=== PATIENT | male | born 1980 | race Caucasian/White ===

== ENCOUNTER 2017-05-22 08:27 | Emergency (ER) | payer MEDICAID, OTHER ==
[~2017-05-22] VITALS: Ht 185.4 cm; Wt 77.3 kg
[~2017-05-22 08:27] MED LIST: ALBU17AE16 IH
[2017-05-22 09:04] VITALS: BP 139/82
[2017-05-22] MEDS ORDERED: IBUPROFEN 600 MG TABLET PO ONE (09:15)
== END 2017-05-22 09:27 | disposition home or self-care (01) ==
LOC: EMS 08:28
DX: K02.9 Dental caries, unspecified (principal); J45.909 Unspecified asthma, uncomplicated; Z79.899 Other long term (current) drug therapy; Z71.6 Tobacco abuse counseling; F17.210 Nicotine dependence, cigarettes, uncomplicated
CPT/HCPCS: 99283; 99406

== ENCOUNTER 2017-05-31 18:56 | Emergency (ER) | payer MEDICAID ==
[~2017-05-31] VITALS: Ht 185.4 cm; Wt 77.3 kg
[2017-05-31 18:58] VITALS: BP 143/79
[2017-05-31] MEDS ORDERED: IPRATROPIUM BROMIDE 0.5 MG/2.5 ML NEB SOLUTION NEB PRN (19:15)
[2017-05-31] MEDS ORDERED: ALBUTEROL SULFATE 2.5 MG/0.5 ML NEB SOLUTION NEB PRN (19:15)
[2017-05-31] MEDS ORDERED: MethylPREDNISolone SOD SUCC 125 MG/2 ML VIAL IVP ONE (19:45)
[2017-05-31] MEDS ORDERED: IPRATROPIUM BROMIDE 0.5 MG/2.5 ML NEB SOLUTION NEB ONE (19:45)
[2017-05-31] MEDS ORDERED: ALBUTEROL SULFATE 5 MG/ML 20 ML NEB SOLN [BULK] NEB ONE (19:46)
[2017-05-31 19:48] LABS: BASOPHILS % (AUTO) 1.1 % (0.0-2.0); EOSINOPHILS % (AUTO) 8.1 % (1.0-6.0); HEMATOCRIT 45.9 % (41-53); LYMPHOCYTES # (AUTO) 2.6 K/uL (1.0-4.8); LYMPHOCYTES % (AUTO) 28.9 % (22.0-44.0); MEAN CORPUSCULAR HGB CONC 34.8 G/dL (31.0-37.0); MEAN CORPUSCULAR VOLUME 95 fL (80-100); MONOCYTES # (AUTO) 0.6 K/uL (0.1-1.0); MONOCYTES % (AUTO) 7.2 % (2.0-9.0); NEUTROPHILS # (AUTO) 4.9 K/uL (1.8-7.7); NEUTROPHILS % (AUTO) 54.7 % (40.0-70.0); PLATELET COUNT (AUTO) 310 K/uL (150-450); RED BLOOD CELL COUNT(AUTO) 4.85 MIL/uL (4.50-5.90); RED CELL DISTRIBUTION WIDTH 13.3 % (11.5-14.5)
[2017-05-31 20:10] LABS: B-TYPE NATRIURETIC PEPTIDE 7 pg/mL (0-100)
[2017-05-31 20:30] LABS: ANION GAP 9 mmol/L (8-16); CALCIUM, TOTAL 9.1 mg/dL (8.8-10.5); CARBON DIOXIDE 30 mmol/L (22-29); CHLORIDE 105 mmol/L (98-107); CREATININE 1.15 mg/dL (0.60-1.30); GLOMERULAR FILTR. RATE CALC > 60 mL/min (>60); GLUCOSE,RANDOM 93 mg/dL (70-110); POTASSIUM 3.9 mmol/L (3.5-5.1); SODIUM SERUM 144 mmol/L (136-145); UREA NITROGEN, BLOOD 17 mg/dL (7-18)
[2017-05-31 20:34] LABS: ALANINE AMINOTRANSFERASE 19 U/L (12-78); ALBUMIN 3.8 g/dL (3.4-5.0); ALKALINE PHOSPHATASE 84 U/L (46-116); ASPARTATE AMINOTRANSFERASE 18 U/L (15-37); BILIRUBIN,TOTAL 0.3 mg/dL (0.1-1.0); TOTAL PROTEIN, SERUM 7.3 g/dL (6.4-8.2)
== END 2017-05-31 21:20 | disposition home or self-care (01) ==
LOC: EMS 18:57
DX: J45.901 Unspecified asthma with (acute) exacerbation (principal); F17.210 Nicotine dependence, cigarettes, uncomplicated
CPT/HCPCS: 36415; 71045; 80053; 83880; 84484; 85025; 93005; 94644; 96374; 99285; J2930; J7611

== ENCOUNTER → 2017-06-27 | Outpatient (CLI) | payer OTHER | END | disposition home or self-care (01) | LOC: EMPHLTH 14:09 | PROVIDERS: ATTEND Internal Medicine | DX: Z02.1 Encounter for pre-employment examination (principal) | CPT/HCPCS: 86706; 86735; 86762; 86765; 86787 ==

== ENCOUNTER 2017-07-06 20:06 | Emergency (ER) | payer MEDICAID ==
[~2017-07-06] VITALS: Ht 182.9 cm; Wt 106.8 kg
[2017-07-06] MEDS ORDERED: ALBUTEROL SULFATE 2.5 MG/0.5 ML NEB SOLUTION NEB ONE (20:15)
[2017-07-06] MEDS ORDERED: 0.9% SODIUM CHLORIDE 5 ML NEB SOLUTION NEB ONE ×2 (20:34→21:21)
[2017-07-06] MEDS ORDERED: LEVALBUTEROL HCL 1.25 MG/0.5 ML NEB SOLUTION NEB ONE (21:10)
[2017-07-06] MEDS ORDERED: IPRATROPIUM BROMIDE 0.5 MG/2.5 ML NEB SOLUTION NEB ONE (21:15)
[2017-07-06] MEDS ORDERED: MethylPREDNISolone SOD SUCC 125 MG/2 ML VIAL IVP ONE (21:15)
[2017-07-06 22:17] VITALS: BP 129/83
[2017-07-06] MEDS ORDERED: ALBUTEROL SULFATE HFA 90 MCG/PUFF 8 GM INHALER IH ONE (22:30)
== END 2017-07-06 22:42 | disposition home or self-care (01) ==
LOC: EMS 20:07
DX: J45.909 Unspecified asthma, uncomplicated (principal); F17.210 Nicotine dependence, cigarettes, uncomplicated
CPT/HCPCS: 71045; 94644; 96374; 99285; J2930; J7613; Z7610; 94640; J3535

== ENCOUNTER 2017-09-08 19:39 | Emergency (ER) | payer MEDICAID ==
[~2017-09-08] VITALS: Ht 182.9 cm; Wt 90.9 kg
[2017-09-08] MEDS ORDERED: 0.9% SODIUM CHLORIDE 5 ML NEB SOLUTION NEB ONE (19:56)
[2017-09-08] MEDS ORDERED: IPRATROPIUM BROMIDE 0.5 MG/2.5 ML NEB SOLUTION NEB ONE (20:00)
[2017-09-08] MEDS ORDERED: ALBUTEROL SULFATE 5 MG/ML 20 ML NEB SOLN [BULK] NEB ONE (20:00)
[2017-09-08] MEDS ORDERED: MAGNESIUM SULFATE 4 GM/WATER 100 ML IV ONE (20:15)
[2017-09-08] MEDS ORDERED: MethylPREDNISolone SOD SUCC 125 MG/2 ML VIAL IVP ONE (20:15)
[2017-09-08] MEDS ORDERED: KETOROLAC TROMETHAMINE 30 MG/ML VIAL IVP ONE (20:30)
[2017-09-08] MEDS ORDERED: HYDROCODONE/ACETAMINOPHEN 5-325 MG TABLET PO ONE (21:45)
[2017-09-08 22:24] VITALS: BP 129/80
== END 2017-09-08 22:28 | disposition home or self-care (01) ==
LOC: EMS 19:40
DX: J45.909 Unspecified asthma, uncomplicated (principal); F17.210 Nicotine dependence, cigarettes, uncomplicated
CPT/HCPCS: 71045; 94644; 96365; 96366; 96375; 99285; J1885; J2930; J3475; J7611

== ENCOUNTER 2017-11-15 12:15 | Emergency (ER) | payer MEDICAID ==
[~2017-11-15] VITALS: Ht 185.4 cm; Wt 82.3 kg
[2017-11-15 12:40] VITALS: BP 142/76
[2017-11-15] MEDS ORDERED: IBUPROFEN 800 MG TABLET PO ONE (12:45)
== END 2017-11-15 13:32 | disposition home or self-care (01) ==
LOC: EMS 12:16
DX: K08.89 Other specified disorders of teeth and supporting structures (principal); J45.909 Unspecified asthma, uncomplicated; F17.210 Nicotine dependence, cigarettes, uncomplicated
CPT/HCPCS: 99283

== ENCOUNTER 2018-01-18 18:49 | Emergency (ER) | payer MEDICAID ==
[~2018-01-18] VITALS: Ht 185.4 cm; Wt 81.8 kg
[2018-01-18] MEDS ORDERED: BACITRACIN 0.9 GM PACKET OINTMENT TP ONE (19:30)
[2018-01-18] MEDS ORDERED: POVIDONE-IODINE 10% 15 ML SOLUTION UD TP ONE (19:30)
[2018-01-18] MEDS ORDERED: LIDOCAINE 1% 10 ML VIAL INJ ONE (19:30)
[2018-01-18] MEDS ORDERED: IBUPROFEN 800 MG TABLET PO ONE (19:30)
[2018-01-18] MEDS ORDERED: PERTUSS(ACELL),DIPH,TET VAC/PF 0.5 ML VIAL IM ONE (19:30)
[2018-01-18 20:37] VITALS: BP 125/80
== END 2018-01-18 20:36 | disposition home or self-care (01) ==
LOC: EMS 18:51
DX: S61.011A Laceration without foreign body of right thumb without damage to nail, initial encounter (principal); J45.909 Unspecified asthma, uncomplicated; F17.210 Nicotine dependence, cigarettes, uncomplicated; Z79.899 Other long term (current) drug therapy; W45.8XXA Other foreign body or object entering through skin, initial encounter; Y93.89 Activity, other specified; Y92.098 Other place in other non-institutional residence as the place of occurrence of the external cause; Y99.8 Other external cause status
CPT/HCPCS: 12001; 90471; 90715; 99283; J3490

== ENCOUNTER 2018-06-08 10:33 | Emergency (ER) | payer MEDICAID ==
[~2018-06-08] VITALS: Ht 185.4 cm; Wt 86.4 kg
[2018-06-08] MEDS ORDERED: IPRATROPIUM BROMIDE 0.5 MG/2.5 ML NEB SOLUTION NEB ONE (11:15)
[2018-06-08] MEDS ORDERED: PredniSONE 20 MG TABLET PO ONE (11:15)
[2018-06-08] MEDS ORDERED: ALBUTEROL SULFATE 2.5 MG/0.5 ML NEB SOLUTION NEB ONE (11:15)
[2018-06-08 12:45] VITALS: BP 132/80
[2018-06-08] MEDS ORDERED: ACETAMINOPHEN 325 MG TABLET PO ONE (12:45)
[2018-06-08] MEDS ORDERED: ALBUTEROL SULFATE HFA 90 MCG/PUFF 8 GM INHALER IH ONE (12:45)
== END 2018-06-08 13:15 | disposition home or self-care (01) ==
LOC: EMS 10:34
DX: J45.909 Unspecified asthma, uncomplicated (principal); F17.210 Nicotine dependence, cigarettes, uncomplicated; Z76.0 Encounter for issue of repeat prescription
CPT/HCPCS: 94640; 99284; J7512; J3535

== ENCOUNTER 2018-07-21 13:44 | Emergency (ER) | payer MEDICAID ==
[~2018-07-21] VITALS: Ht 185.4 cm; Wt 89.5 kg
[2018-07-21] MEDS ORDERED: IPRATROPIUM BROMIDE 0.5 MG/2.5 ML NEB SOLUTION NEB ONE (14:15)
[2018-07-21] MEDS ORDERED: ALBUTEROL SULFATE 2.5 MG/0.5 ML NEB SOLUTION NEB ONE (14:15)
[2018-07-21] MEDS ORDERED: PredniSONE 20 MG TABLET PO ONE (15:15)
[2018-07-21 16:13] VITALS: BP 131/71
== END 2018-07-21 16:32 | disposition home or self-care (01) ==
LOC: EMS 13:46
DX: J45.901 Unspecified asthma with (acute) exacerbation (principal); L30.9 Dermatitis, unspecified; I10 Essential (primary) hypertension; F17.210 Nicotine dependence, cigarettes, uncomplicated; Z79.899 Other long term (current) drug therapy
CPT/HCPCS: 94640; 99283; 99406; J7512

== ENCOUNTER 2018-11-09 07:10 | Emergency (ER) | payer MEDICAID ==
[~2018-11-09] VITALS: Ht 185.4 cm; Wt 86.4 kg
[2018-11-09] MEDS: SODIUM CHLORIDE 0.9% 1,000 ML IV ONE (08:04)
[2018-11-09] MEDS: MethylPREDNISolone SOD SUCC 125 MG/2 ML VIAL IVP ONE (08:04)
[2018-11-09 08:15] LABS: BASOPHILS % (AUTO) 0.4 % (0.0-2.0); EOSINOPHILS % (AUTO) 2.5 % (1.0-6.0); HEMATOCRIT 45.6 % (41-53); HEMOGLOBIN 15.4 g/dL (13.5-17.5); LYMPHOCYTES # (AUTO) 0.7 K/uL (1.0-4.8); LYMPHOCYTES % (AUTO) 8.5 % (22.0-44.0); MEAN CORPUSCULAR HEMOGLOBIN 32.5 pg (26.0-34.0); MEAN CORPUSCULAR HGB CONC 33.8 G/dL (31.0-37.0); MEAN CORPUSCULAR VOLUME 96 fL (80-100); MONOCYTES # (AUTO) 0.8 K/uL (0.1-1.0); MONOCYTES % (AUTO) 9.3 % (2.0-9.0); NEUTROPHILS # (AUTO) 6.9 K/uL (1.8-7.7); NEUTROPHILS % (AUTO) 79.3 % (40.0-70.0); PLATELET COUNT (AUTO) 261 K/uL (150-450); RED BLOOD CELL COUNT(AUTO) 4.74 MIL/uL (4.50-5.90); RED CELL DISTRIBUTION WIDTH 12.9 % (11.5-14.5)
[2018-11-09] MEDS: IPRATROPIUM BROMIDE 0.5 MG/2.5 ML NEB SOLUTION NEB ONE ×2 (08:18→11:49)
[2018-11-09] MEDS: ALBUTEROL SULFATE 2.5 MG/0.5 ML NEB SOLUTION NEB ONE (08:18)
[2018-11-09 08:22] LABS: ANION GAP 12 mmol/L (8-16); CALCIUM, TOTAL 8.8 mg/dL (8.8-10.5); CARBON DIOXIDE 24 mmol/L (22-29); CHLORIDE 104 mmol/L (98-107); GLOMERULAR FILTR. RATE CALC > 60 mL/min (>60); GLUCOSE,RANDOM 134 mg/dL (70-110); POTASSIUM 3.2 mmol/L (3.5-5.1); SODIUM SERUM 140 mmol/L (136-145); UREA NITROGEN, BLOOD 19 mg/dL (7-18)
[2018-11-09] MEDS ORDERED: 0.9% SODIUM CHLORIDE 5 ML NEB SOLUTION NEB ONE (08:24)
[2018-11-09 08:27] LABS: ALANINE AMINOTRANSFERASE 28 U/L (12-78); ALBUMIN 3.6 g/dL (3.4-5.0); ALKALINE PHOSPHATASE 85 U/L (46-116); ASPARTATE AMINOTRANSFERASE 21 U/L (15-37); BILIRUBIN,TOTAL 0.6 mg/dL (0.1-1.0); LIPASE 95 U/L (73-393)
[2018-11-09] MEDS: DICYCLOMINE HCL 20 MG TABLET PO ONE (08:47)
[2018-11-09] MEDS: ALBUTEROL SULFATE 5 MG/ML 20 ML NEB SOLN [BULK] NEB ONE (11:49)
[2018-11-09] MEDS: IBUPROFEN 800 MG TABLET PO ONE (13:04)
[2018-11-09 13:08] VITALS: BP 143/83
== END 2018-11-09 13:31 | disposition home or self-care (01) ==
LOC: EMS 07:15
DX: J45.901 Unspecified asthma with (acute) exacerbation (principal); J06.9 Acute upper respiratory infection, unspecified; R10.9 Unspecified abdominal pain; R11.2 Nausea with vomiting, unspecified; F17.210 Nicotine dependence, cigarettes, uncomplicated
CPT/HCPCS: 36415; 71045; 80053; 83690; 85025; 94644; 94645; 96374; 99285; 99406; J2930; J7030

== ENCOUNTER 2019-02-26 07:11 | Emergency (ER) | payer MEDICAID ==
[~2019-02-26] VITALS: Ht 185.4 cm; Wt 87.3 kg
[2019-02-26] MEDS ORDERED: AUD NEB (07:19)
[2019-02-26] MEDS ORDERED: BECL10.6 IH (07:19)
[2019-02-26] MEDS ORDERED: CYCLOBENZAPRINE HCL 10 MG TABLET PO ONE (07:45)
[2019-02-26] MEDS ORDERED: IBUPROFEN 600 MG TABLET PO ONE (07:45)
[2019-02-26 07:57] LABS: BASOPHILS % (AUTO) 0.4 % (0.0-2.0); EOSINOPHILS % (AUTO) 0.7 % (1.0-6.0); HEMATOCRIT 47.5 % (41-53); HEMOGLOBIN 16.5 g/dL (13.5-17.5); LYMPHOCYTES # (AUTO) 0.6 K/uL (1.0-4.8); MEAN CORPUSCULAR HGB CONC 34.7 G/dL (31.0-37.0); MEAN CORPUSCULAR VOLUME 95 fL (80-100); MONOCYTES # (AUTO) 0.3 K/uL (0.1-1.0); MONOCYTES % (AUTO) 4.4 % (2.0-9.0); NEUTROPHILS # (AUTO) 6.7 K/uL (1.8-7.7); PLATELET COUNT (AUTO) 320 K/uL (150-450); RED BLOOD CELL COUNT(AUTO) 4.99 MIL/uL (4.50-5.90); RED CELL DISTRIBUTION WIDTH 12.4 % (11.5-14.5)
[2019-02-26 08:05] LABS: ANION GAP 11 mmol/L (8-16); CALCIUM, TOTAL 8.8 mg/dL (8.8-10.5); CARBON DIOXIDE 24 mmol/L (22-29); CHLORIDE 104 mmol/L (98-107); CREATININE 1.12 mg/dL (0.60-1.30); GLOMERULAR FILTR. RATE CALC > 60 mL/min (>60); GLUCOSE,RANDOM 157 mg/dL (70-110); SODIUM SERUM 139 mmol/L (136-145); UREA NITROGEN, BLOOD 17 mg/dL (7-18)
[2019-02-26 08:08] LABS: NEUTROPHILS % (AUTO) 86.5 % (40.0-70.0)
[2019-02-26 08:45] VITALS: BP 138/87
== END 2019-02-26 08:55 | disposition home or self-care (01) ==
LOC: EMS 07:14
DX: R07.89 Other chest pain (principal); M54.5 Low back pain; J45.909 Unspecified asthma, uncomplicated; F17.210 Nicotine dependence, cigarettes, uncomplicated; Z98.890 Other specified postprocedural states
CPT/HCPCS: 93005

== ENCOUNTER 2019-05-13 06:22 | Emergency (ER) | payer MEDICAID ==
[~2019-05-13] VITALS: Ht 185.4 cm; Wt 100.0 kg
[~2019-05-13 06:22] MED LIST changes: +AUD NEB; +BECL10.6 IH
[2019-05-13] MEDS ORDERED: KETOROLAC TROMETHAMINE 30 MG/ML VIAL IM ONE (08:00)
[2019-05-13] MEDS ORDERED: PENICILLIN V POTASSIUM 500 MG TABLET PO ONE (08:00)
[2019-05-13 08:20] VITALS: BP 133/81
== END 2019-05-13 08:40 | disposition home or self-care (01) ==
LOC: EMS 06:22
DX: K08.89 Other specified disorders of teeth and supporting structures (principal); J45.909 Unspecified asthma, uncomplicated; F17.210 Nicotine dependence, cigarettes, uncomplicated; Z79.899 Other long term (current) drug therapy; Z98.890 Other specified postprocedural states
CPT/HCPCS: 96372; 99283; 99406; J1885

== ENCOUNTER 2020-03-03 11:43 | Emergency (ER) | payer MEDICAID ==
[~2020-03-03] VITALS: Ht 185.4 cm; Wt 95.5 kg
[2020-03-03] MEDS ORDERED: IPRATROPIUM BROMIDE 0.5 MG/2.5 ML NEB SOLUTION NEB ONE ×2 (12:00→13:00)
[2020-03-03] MEDS ORDERED: KETOROLAC TROMETHAMINE 30 MG/ML VIAL IVP ONE (12:00)
[2020-03-03] MEDS ORDERED: MethylPREDNISolone SOD SUCC 125 MG/2 ML VIAL IVP ONE (12:00)
[2020-03-03] MEDS ORDERED: ALBUTEROL SULFATE 2.5 MG/0.5 ML NEB SOLUTION NEB ONE ×4 (12:00→13:00)
[2020-03-03 12:28] LABS: BASOPHILS % (AUTO) 0.8 % (0.0-2.0); HEMATOCRIT 45.3 % (41-53); HEMOGLOBIN 15.8 g/dL (13.5-17.5); LYMPHOCYTES # (AUTO) 1.4 K/uL (1.0-4.8); MEAN CORPUSCULAR HGB CONC 34.8 G/dL (31.0-37.0); MEAN CORPUSCULAR VOLUME 95 fL (80-100); MONOCYTES # (AUTO) 0.5 K/uL (0.1-1.0); MONOCYTES % (AUTO) 7.2 % (2.0-9.0); NEUTROPHILS # (AUTO) 4.8 K/uL (1.8-7.7); PLATELET COUNT (AUTO) 279 K/uL (150-450); RED BLOOD CELL COUNT(AUTO) 4.77 MIL/uL (4.50-5.90); RED CELL DISTRIBUTION WIDTH 12.9 % (11.5-14.5)
[2020-03-03] MEDS ORDERED: ALBU8HFA IH (12:28)
[2020-03-03] MEDS ORDERED: SODIUM CHLORIDE 0.9% 1,000 ML IV ONE (12:30)
[2020-03-03 12:41] LABS: COVID AG,FIA SOURCE NASOPHARYNGEAL
[2020-03-03 12:41] LABS: ANION GAP 8 mmol/L (8-16); CALCIUM, TOTAL 9.4 mg/dL (8.8-10.5); CARBON DIOXIDE 26 mmol/L (22-29); CHLORIDE 102 mmol/L (98-107); CREATININE 0.87 mg/dL (0.60-1.30); GLOMERULAR FILTR. RATE CALC > 60 mL/min (>60); GLUCOSE,RANDOM 103 mg/dL (70-110); POTASSIUM 3.9 mmol/L (3.5-5.1); SODIUM SERUM 136 mmol/L (136-145); UREA NITROGEN, BLOOD 14 mg/dL (7-18)
[2020-03-03 13:01] LABS: ALANINE AMINOTRANSFERASE 31 U/L (12-78); ALBUMIN 3.8 g/dL (3.4-5.0); ALKALINE PHOSPHATASE 80 U/L (46-116); ASPARTATE AMINOTRANSFERASE 21 U/L (15-37); BILIRUBIN,TOTAL 0.6 mg/dL (0.1-1.0); CREATINE KINASE, TOTAL ONLY 181 U/L (39-308); TOTAL PROTEIN, SERUM 7.9 g/dL (6.4-8.2)
[2020-03-03 13:02] LABS: B-TYPE NATRIURETIC PEPTIDE 8 pg/mL (0-100)
[2020-03-03 13:46] LABS: INFLUENZA TYPE A NEGATIVE FOR TYPE A (NEGATIVE); INFLUENZA TYPE B NEGATIVE FOR TYPE B (NEGATIVE)
[2020-03-03] MEDS ORDERED: ALBUTEROL SULFATE HFA 90 MCG/PUFF 8 GM INHALER IH ONE (15:45)
[2020-03-03 16:27] VITALS: BP 130/84
== END 2020-03-03 16:29 | disposition home or self-care (01) ==
LOC: EMS 11:43
DX: J45.909 Unspecified asthma, uncomplicated (principal); F17.210 Nicotine dependence, cigarettes, uncomplicated; Z20.828 Contact with and (suspected) exposure to other viral communicable diseases
CPT/HCPCS: 36415; 71045; 80053; 82550; 83880; 84484; 85025; 87426; 87804; 93005; 94640; 96361; 96374; 96375; 99285; J1885; J2930; J7030; U0003; J3535; J7613

== ENCOUNTER 2020-03-11 08:33 | Emergency (ER) | payer MEDICAID ==
[~2020-03-11] VITALS: Ht 185.4 cm; Wt 95.5 kg
[~2020-03-11 08:33] MED LIST changes: -ALBU17AE16 IH; +ALBU8HFA IH
[2020-03-11] MEDS ORDERED: KETOROLAC TROMETHAMINE 30 MG/ML VIAL IVP ONE (09:45)
[2020-03-11] MEDS ORDERED: METHOCARBAMOL 100 MG/ML 10 ML VIAL IVP ONE (09:45)
[2020-03-11 10:53] VITALS: BP 135/75
== END 2020-03-11 10:50 | disposition home or self-care (01) ==
LOC: EMS 08:35
DX: M54.5 Low back pain (principal); J45.909 Unspecified asthma, uncomplicated; F17.210 Nicotine dependence, cigarettes, uncomplicated; Z91.011 Allergy to milk products
CPT/HCPCS: 96374; 96375; 99284; J1885; J2800

== ENCOUNTER 2020-06-07 07:22 | Emergency (ER) | payer MEDICAID ==
[~2020-06-07] VITALS: Ht 182.9 cm; Wt 95.5 kg
[~2020-06-07 07:22] MED LIST changes: -AUD NEB
[2020-06-07] MEDS ORDERED: KETOROLAC TROMETHAMINE 30 MG/ML VIAL IVP ONE (08:00)
[2020-06-07] MEDS ORDERED: MORPHINE SULFATE 4 MG/ML SYRINGE IVP ONE (08:00)
[2020-06-07 11:18] VITALS: BP 139/94
== END 2020-06-07 11:20 | disposition home or self-care (01) ==
LOC: EMS 07:22
DX: S13.4XXA Sprain of ligaments of cervical spine, initial encounter (principal); J45.909 Unspecified asthma, uncomplicated; F17.210 Nicotine dependence, cigarettes, uncomplicated; Z91.011 Allergy to milk products; X58.XXXA Exposure to other specified factors, initial encounter; Y93.89 Activity, other specified; Y92.89 Other specified places as the place of occurrence of the external cause; Y99.8 Other external cause status
CPT/HCPCS: 72141; 96374; 96375; 99285; J1885; J2270

== ENCOUNTER 2020-09-28 14:15 | Emergency (ER) | payer MEDICAID ==
[~2020-09-28] VITALS: Ht 185.4 cm; Wt 95.5 kg
[2020-09-28] MEDS ORDERED: MethylPREDNISolone SOD SUCC 125 MG/2 ML VIAL IVP ONE (15:15)
[2020-09-28] MEDS ORDERED: KETOROLAC TROMETHAMINE 30 MG/ML VIAL IVP ONE (15:15)
[2020-09-28] MEDS ORDERED: ALBUTEROL SULFATE 5 MG/ML 20 ML NEB SOLN [BULK] NEB ONE (15:15)
[2020-09-28 16:21] LABS: COVID AG,FIA SOURCE NASAL SWAB
[2020-09-28] MEDS ORDERED: MORPHINE SULFATE 2 MG/ML SYRINGE IVP ONE (17:15)
[2020-09-28 17:17] LABS: BASOPHILS % (AUTO) 0.2 % (0.0-2.0); EOSINOPHILS % (AUTO) 2.2 % (1.0-6.0); HEMATOCRIT 43.8 % (41-53); HEMOGLOBIN 14.9 g/dL (13.5-17.5); LYMPHOCYTES # (AUTO) 1.1 K/uL (1.0-4.8); LYMPHOCYTES % (AUTO) 10.5 % (22.0-44.0); MEAN CORPUSCULAR HEMOGLOBIN 32.4 pg (26.0-34.0); MEAN CORPUSCULAR HGB CONC 34.1 G/dL (31.0-37.0); MEAN CORPUSCULAR VOLUME 95 fL (80-100); MONOCYTES # (AUTO) 0.4 K/uL (0.1-1.0); MONOCYTES % (AUTO) 4.2 % (2.0-9.0); NEUTROPHILS # (AUTO) 8.6 K/uL (1.8-7.7); NEUTROPHILS % (AUTO) 82.9 % (40.0-70.0); PLATELET COUNT (AUTO) 328 K/uL (150-450); RED BLOOD CELL COUNT(AUTO) 4.61 MIL/uL (4.50-5.90); RED CELL DISTRIBUTION WIDTH 12.9 % (11.5-14.5)
[2020-09-28 17:29] LABS: ANION GAP 9 mmol/L (8-16); CALCIUM, TOTAL 8.7 mg/dL (8.8-10.5); CARBON DIOXIDE 26 mmol/L (22-29); CHLORIDE 103 mmol/L (98-107); CREATININE 1.02 mg/dL (0.60-1.30); GLOMERULAR FILTR. RATE CALC > 60 mL/min (>60); GLUCOSE,RANDOM 110 mg/dL (70-110); POTASSIUM 3.9 mmol/L (3.5-5.1); SODIUM SERUM 138 mmol/L (136-145); UREA NITROGEN, BLOOD 18 mg/dL (7-18)
[2020-09-28 17:35] LABS: ALANINE AMINOTRANSFERASE 26 U/L (12-78); ALBUMIN 4.1 g/dL (3.4-5.0); ALKALINE PHOSPHATASE 80 U/L (46-116); ASPARTATE AMINOTRANSFERASE 19 U/L (15-37); BILIRUBIN,TOTAL 0.3 mg/dL (0.1-1.0); TOTAL PROTEIN, SERUM 7.4 g/dL (6.4-8.2)
[2020-09-28 17:41] LABS: B-TYPE NATRIURETIC PEPTIDE < 5 pg/mL (0-100)
[2020-09-28 18:11] VITALS: BP 126/82
[2020-09-28] MEDS ORDERED: ALBUTEROL SULFATE HFA 90 MCG/PUFF 8 GM INHALER IH ONE (18:15)
== END 2020-09-28 18:32 | disposition home or self-care (01) ==
LOC: EMS 14:18
DX: J45.909 Unspecified asthma, uncomplicated (principal); F17.210 Nicotine dependence, cigarettes, uncomplicated; Z20.822 Contact with and (suspected) exposure to COVID-19; Z91.011 Allergy to milk products
CPT/HCPCS: 36415; 71045; 80053; 83880; 84484; 85025; 87426; 93005; 94640; 96374; 96375; 99285; J1885; J2270; J2930; J7611

== ENCOUNTER 2020-12-08 08:56 | Emergency (ER) | payer MEDICAID ==
[~2020-12-08] VITALS: Ht 182.9 cm; Wt 100.0 kg
[2020-12-08] MEDS ORDERED: SODIUM CHLORIDE 0.9% 100 ML ONE (10:24)
[2020-12-08] MEDS ORDERED: IOHEXOL 350 MG/ML 75 ML VIAL ONE (10:24)
[2020-12-08] MEDS ORDERED: ACETAMINOPHEN 325 MG TABLET PO ONE (10:30)
[2020-12-08] MEDS ORDERED: KETOROLAC TROMETHAMINE 30 MG/ML VIAL IVP ONE (11:00)
[2020-12-08] MEDS ORDERED: MORPHINE SULFATE 4 MG/ML SYRINGE IVP ONE (11:45)
[2020-12-08 12:04] LABS: COVID AG,FIA SOURCE NASOPHARYNGEAL
[2020-12-08 12:11] LABS: BASOPHILS % (AUTO) 0.4 % (0.0-2.0); EOSINOPHILS % (AUTO) 0.1 % (1.0-6.0); HEMATOCRIT 44.1 % (41-53); HEMOGLOBIN 14.9 g/dL (13.5-17.5); LYMPHOCYTES # (AUTO) 0.5 K/uL (1.0-4.8); LYMPHOCYTES % (AUTO) 5.7 % (22.0-44.0); MEAN CORPUSCULAR HEMOGLOBIN 32.2 pg (26.0-34.0); MEAN CORPUSCULAR HGB CONC 33.7 G/dL (31.0-37.0); MEAN CORPUSCULAR VOLUME 95 fL (80-100); MONOCYTES # (AUTO) 0.2 K/uL (0.1-1.0); MONOCYTES % (AUTO) 1.8 % (2.0-9.0); NEUTROPHILS # (AUTO) 7.8 K/uL (1.8-7.7); PLATELET COUNT (AUTO) 285 K/uL (150-450); RED BLOOD CELL COUNT(AUTO) 4.62 MIL/uL (4.50-5.90)
[2020-12-08 12:22] LABS: ALANINE AMINOTRANSFERASE 28 U/L (12-78); ALBUMIN 3.7 g/dL (3.4-5.0); ALKALINE PHOSPHATASE 71 U/L (46-116); ANION GAP 6 mmol/L (8-16); ASPARTATE AMINOTRANSFERASE 21 U/L (15-37); BILIRUBIN,TOTAL 0.5 mg/dL (0.1-1.0); C-REACTIVE PROTEIN QUANT 0.51 mg/dL (0.00-0.30); CALCIUM, TOTAL 9.1 mg/dL (8.8-10.5); CARBON DIOXIDE 26 mmol/L (22-29); CHLORIDE 103 mmol/L (98-107); CREATININE 0.73 mg/dL (0.60-1.30); FERRITIN 163 ng/mL (26-388); GLOMERULAR FILTR. RATE CALC > 60 mL/min (>60); GLUCOSE,RANDOM 119 mg/dL (70-110); LACTATE DEHYDROGENASE 186 U/L (85-227); POTASSIUM 4.2 mmol/L (3.5-5.1); SODIUM SERUM 135 mmol/L (136-145); TOTAL PROTEIN, SERUM 7.7 g/dL (6.4-8.2); UREA NITROGEN, BLOOD 15 mg/dL (7-18)
[2020-12-08] MEDS ORDERED: ALBUTEROL SULFATE HFA 90 MCG/PUFF 8 GM INHALER IH ONE (12:45)
[2020-12-08 14:03] VITALS: BP 130/71
== END 2020-12-08 14:14 | disposition home or self-care (01) ==
LOC: EMS 09:01
DX: R06.02 Shortness of breath (principal); R07.9 Chest pain, unspecified; J45.909 Unspecified asthma, uncomplicated; Z79.899 Other long term (current) drug therapy; Z88.8 Allergy status to other drugs, medicaments and biological substances; Z20.822 Contact with and (suspected) exposure to COVID-19
CPT/HCPCS: 36415; 71045; 71275; 80053; 82728; 83615; 84145; 84484; 85025; 85379; 86140; 87426; 93005; 94640; 96374; 96375; 99285; A9575; J1885; J2270; J7050; U0003; J3535; Q9967

== ENCOUNTER 2021-02-26 18:05 | Inpatient (IN) | payer MEDICAID ==
[2021-02-26 18:00] VITALS: BP 141/85
[2021-02-26] MEDS ORDERED: ACETAMINOPHEN 325 MG TABLET PO PRN (18:30)
[2021-02-26] MEDS ORDERED: ZOLPIDEM TARTRATE 5 MG TABLET PO PRN (18:30)
[2021-02-26] MEDS ORDERED: MAGNESIUM HYDROXIDE SUSPENSION 30 ML UDCUP PO PRN (18:30)
[2021-02-26] MEDS ORDERED: HYDROCODONE/ACETAMINOPHEN 5-325 MG TABLET PO PRN (18:45)
[2021-02-26] MEDS: HYDROCODONE/ACETAMINOPHEN 5-325 MG TABLET PO PRN (18:57)
[2021-02-26 20:19] VITALS: BP 138/92
[2021-02-26] MEDS: MONTELUKAST SODIUM 10 MG TABLET PO SCH (20:46)
[2021-02-26] MEDS: BENZONATATE 100 MG CAPSULE PO PRN (20:46)
[2021-02-26] MEDS: FAMOTIDINE 20 MG TABLET PO SCH (20:46)
[2021-02-26] MEDS ORDERED: MethylPREDNISolone SOD SUCC 40 MG/ML VIAL IVP SCH (21:00)
[2021-02-26] MEDS: HEPARIN SODIUM,PORCINE 5,000 UNITS/ML VIAL SQ SCH (23:54)
[2021-02-27] MEDS: HYDROCODONE/ACETAMINOPHEN 5-325 MG TABLET PO PRN ×4 (03:26→21:20)
[2021-02-27] MEDS: ALBUTEROL SULFATE 2.5 MG/0.5 ML NEB SOLUTION NEB PRN ×2 (03:36→16:31)
[2021-02-27] MEDS: IPRATROPIUM BROMIDE 0.5 MG/2.5 ML NEB SOLUTION NEB PRN ×2 (03:36→16:31)
[2021-02-27 05:00] VITALS: BP 136/89
[2021-02-27 06:24] LABS: BASOPHILS % (AUTO) 0.4 % (0.0-2.0); EOSINOPHILS % (AUTO) 0 % (1.0-6.0); HEMATOCRIT 47.3 % (41-53); LYMPHOCYTES # (AUTO) 1.2 K/uL (1.0-4.8); LYMPHOCYTES % (AUTO) 8.1 % (22.0-44.0); MEAN CORPUSCULAR HEMOGLOBIN 32.2 pg (26.0-34.0); MEAN CORPUSCULAR HGB CONC 33.9 G/dL (31.0-37.0); MEAN CORPUSCULAR VOLUME 95 fL (80-100); MONOCYTES # (AUTO) 0.7 K/uL (0.1-1.0); NEUTROPHILS # (AUTO) 12.9 K/uL (1.8-7.7); PLATELET COUNT (AUTO) 368 K/uL (150-450); RED BLOOD CELL COUNT(AUTO) 4.98 MIL/uL (4.50-5.90); RED CELL DISTRIBUTION WIDTH 12.9 % (11.5-14.5)
[2021-02-27 06:52] LABS: ALANINE AMINOTRANSFERASE 33 U/L (12-78); ALBUMIN 3.7 g/dL (3.4-5.0); ALKALINE PHOSPHATASE 81 U/L (46-116); ANION GAP 12 mmol/L (8-16); ASPARTATE AMINOTRANSFERASE 20 U/L (15-37); BILIRUBIN,TOTAL 0.3 mg/dL (0.1-1.0); CALCIUM, TOTAL 9.5 mg/dL (8.8-10.5); CARBON DIOXIDE 28 mmol/L (22-29); CHLORIDE 100 mmol/L (98-107); CREATININE 0.86 mg/dL (0.60-1.30); GLOMERULAR FILTR. RATE CALC > 60 mL/min (>60); GLUCOSE,RANDOM 121 mg/dL (70-110); POTASSIUM 4.4 mmol/L (3.5-5.1); SODIUM SERUM 140 mmol/L (136-145); TOTAL PROTEIN, SERUM 7.9 g/dL (6.4-8.2); UREA NITROGEN, BLOOD 20 mg/dL (7-18)
[2021-02-27 06:58] LABS: NEUTROPHILS % (AUTO) 86.5 % (40.0-70.0)
[2021-02-27] MEDS: HEPARIN SODIUM,PORCINE 5,000 UNITS/ML VIAL SQ SCH ×2 (08:00→15:43)
[2021-02-27] MEDS: FAMOTIDINE 20 MG TABLET PO SCH ×2 (08:36→21:17)
[2021-02-27] MEDS: PredniSONE 10 MG TABLET PO SCH (08:37)
[2021-02-27 08:49] VITALS: BP 125/72
[2021-02-27 11:37] VITALS: BP 133/88
[2021-02-27 15:15] VITALS: BP 130/82
[2021-02-27 19:30] VITALS: BP 128/78
[2021-02-27] MEDS: ALBUTEROL SULFATE 2.5 MG/0.5 ML NEB SOLUTION NEB SCH ×2 (19:54→23:01)
[2021-02-27] MEDS: IPRATROPIUM BROMIDE 0.5 MG/2.5 ML NEB SOLUTION NEB SCH ×2 (19:54→23:01)
[2021-02-27] MEDS: BENZONATATE 100 MG CAPSULE PO PRN (21:17)
[2021-02-27] MEDS: MONTELUKAST SODIUM 10 MG TABLET PO SCH (21:20)
[2021-02-28] MEDS: ALBUTEROL SULFATE 2.5 MG/0.5 ML NEB SOLUTION NEB SCH ×2 (03:56→07:06)
[2021-02-28] MEDS: IPRATROPIUM BROMIDE 0.5 MG/2.5 ML NEB SOLUTION NEB SCH ×2 (03:56→07:06)
[2021-02-28 04:00] VITALS: BP 126/76
[2021-02-28] MEDS: HYDROCODONE/ACETAMINOPHEN 5-325 MG TABLET PO PRN ×2 (04:14→08:17)
[2021-02-28 07:45] VITALS: BP 132/88
[2021-02-28] MEDS: FAMOTIDINE 20 MG TABLET PO SCH (08:13)
[2021-02-28] MEDS: HEPARIN SODIUM,PORCINE 5,000 UNITS/ML VIAL SQ SCH ×2 (08:13)
[2021-02-28] MEDS: PredniSONE 10 MG TABLET PO SCH (08:13)
== END 2021-02-28 11:56 | disposition home or self-care (01) | DRG 141 ==
LOC: 6N 18:07
PROVIDERS: ADMIT Internal Medicine; ATTEND Internal Medicine
DX: J45.901 Unspecified asthma with (acute) exacerbation (principal); J96.91 Respiratory failure, unspecified with hypoxia; R65.10 Systemic inflammatory response syndrome (SIRS) of non-infectious origin without acute organ dysfunction; G43.909 Migraine, unspecified, not intractable, without status migrainosus; Z79.899 Other long term (current) drug therapy; Z91.011 Allergy to milk products
CPT/HCPCS: 71045; 80053; 85025; 94640; J1644; J2920; 36415-L1; 36415-TC; J7512; J7613; Z7610

== ENCOUNTER 2021-05-08 06:30 | Emergency (ER) | payer SELFPAY ==
[~2021-05-08] VITALS: Ht 185.4 cm; Wt 100.0 kg
[2021-05-08 07:49] LABS: COVID AG,FIA SOURCE NASOPHARYNGEAL
[2021-05-08] MEDS ORDERED: IPRATROPIUM BROMIDE 0.5 MG/2.5 ML NEB SOLUTION NEB ONE (09:15)
[2021-05-08] MEDS ORDERED: ALBUTEROL SULFATE 2.5 MG/0.5 ML NEB SOLUTION NEB ONE (09:15)
[2021-05-08] MEDS ORDERED: ALBUTEROL SULFATE HFA 90 MCG/PUFF 8 GM INHALER IH ONE (10:00)
[2021-05-08] MEDS ORDERED: PredniSONE 20 MG TABLET PO ONE (10:00)
[2021-05-08] MEDS ORDERED: PRED20 PO (10:03)
[2021-05-08 11:46] VITALS: BP 110/61
== END 2021-05-08 12:04 | disposition home or self-care (01) ==
LOC: EMS 06:32
DX: J45.909 Unspecified asthma, uncomplicated (principal); F17.210 Nicotine dependence, cigarettes, uncomplicated; Z20.822 Contact with and (suspected) exposure to COVID-19; Z91.011 Allergy to milk products
CPT/HCPCS: 36415; 71045; 84484; 87426; 93005; 94640; 99285; J7512; J3535; J7613

== ENCOUNTER 2025-02-14 08:44 | Emergency (ER) | payer OTHER ==
[~2025-02-14] VITALS: Ht 185.4 cm; Wt 96.0 kg
[~2025-02-14 08:44] MED LIST changes: +ACET-2080 PO; +ALBU18HF12 IH; -ALBU8HFA IH; -BECL10.6 IH; +FLUT1BLS19 IH; +GUAIFDM PO; +IPRA3AMP24 NEB; +MONT-40 PO; +PRED-554 PO
[2025-02-14] MEDS: IPRATROPIUM BROMIDE 0.5 MG/2.5 ML NEB SOLUTION NEB ONE ×2 (09:12→10:42)
[2025-02-14] MEDS: ALBUTEROL SULFATE 2.5 MG/0.5 ML 5 ML NEB SOLUTION NEB ONE ×2 (09:12→10:42)
[2025-02-14 09:15] VITALS: PULSE 127; RESP 18; O2SAT 93
[2025-02-14 09:41] LABS: COVID AG,FIA SOURCE NASAL SWAB
[2025-02-14] MEDS: ACETAMINOPHEN 500 MG TABLET PO ONE (10:03)
[2025-02-14 10:15] VITALS: PULSE 110; RESP 18; O2SAT 99
[2025-02-14 10:25] LABS: INFLUENZA TYPE A NEGATIVE FOR TYPE A (NEGATIVE); INFLUENZA TYPE B NEGATIVE FOR TYPE B (NEGATIVE); SARS-COV2 (COVID) ANTIGEN,FIA Negative (Negative)
[2025-02-14] MEDS: SODIUM CHLORIDE 0.9% 1,000 ML IV ONE (10:34)
[2025-02-14] MEDS: KETOROLAC TROMETHAMINE 30 MG/ML VIAL IVP ONE (10:35)
[2025-02-14 10:42] VITALS: PULSE 109; RESP 16; O2SAT 92
[2025-02-14 11:14] LABS: PLATELET COUNT (AUTO) 379 K/uL (150-450); RED BLOOD CELL COUNT(AUTO) 5.06 MIL/uL (4.50-5.90); RED CELL DISTRIBUTION WIDTH 12.8 % (11.5-14.5); WHITE BLOOD COUNT (AUTO) 9.7 K/uL (4.5-11.0)
[2025-02-14 11:19] LABS: CALCIUM, TOTAL 8.7 mg/dL (8.8-10.5); CREATININE 0.94 mg/dL (0.60-1.30); GLOMERULAR FILTR. RATE CALC > 60 mL/min (>60); GLUCOSE,RANDOM 90 mg/dL (70-110); SODIUM SERUM 139 mmol/L (136-145); UREA NITROGEN, BLOOD 19 mg/dL (7-18)
[2025-02-14 11:30] LABS: ASPARTATE AMINOTRANSFERASE 21 U/L (15-37); TOTAL PROTEIN, SERUM 7.4 g/dL (6.4-8.2)
[2025-02-14 11:49] VITALS: PULSE 108; RESP 19; O2SAT 96
[2025-02-14 12:54] VITALS: BP 156/87; PULSE 130; RESP 26; TEMP 98.4; O2SAT 94
[2025-02-14] MEDS: ALBUTEROL SULFATE HFA 90 MCG/PUFF 8 GM INHALER IH ONE (12:55)
[2025-02-14] MEDS ORDERED: PRED-554 PO (12:55)
[2025-02-14] MEDS: HYDROCODONE/ACETAMINOPHEN 5-325 MG TABLET PO ONE (12:55)
[2025-02-16] MEDS ORDERED: PRED-554 PO (13:14)
== END 2025-02-14 13:01 | disposition home or self-care (01) ==
LOC: EMS 08:44
DX: J45.901 Unspecified asthma with (acute) exacerbation (principal); R07.89 Other chest pain; F17.210 Nicotine dependence, cigarettes, uncomplicated; Z79.52 Long term (current) use of systemic steroids; Z79.51 Long term (current) use of inhaled steroids; Z91.0110 Allergy to milk products, unspecified; Z79.899 Other long term (current) drug therapy; Z98.890 Other specified postprocedural states; Z20.822 Contact with and (suspected) exposure to COVID-19
CPT/HCPCS: 99285; 96374; 71045; 96361; 96375; 87426; 80053; 85025; 87804; 36415; 94644; 93005; J1885; J2919; J7030; J3535

== ENCOUNTER 2025-03-10 10:42 | Emergency (ER) | payer OTHER ==
[~2025-03-10] VITALS: Ht 185.4 cm; Wt 90.9 kg
[~2025-03-10 10:42] MED LIST changes: -ACET-2080 PO; -GUAIFDM PO; -IPRA3AMP24 NEB
[2025-03-10 10:46] VITALS: TEMP 98.1
[2025-03-10 10:58] LABS: COVID AG,FIA SOURCE NASAL SWAB
[2025-03-10 11:36] VITALS: BP 115/82
[2025-03-10] MEDS ORDERED: ALBU18HF12 IH (11:38)
[2025-03-10 11:43] LABS: SARS-COV2 (COVID) ANTIGEN,FIA Negative (Negative)
[2025-03-10 11:44] LABS: INFLUENZA TYPE A NEGATIVE FOR TYPE A (NEGATIVE); INFLUENZA TYPE B NEGATIVE FOR TYPE B (NEGATIVE)
[2025-03-10] MEDS: ALBUTEROL SULFATE 2.5 MG/0.5 ML NEB SOLUTION NEB ONE (11:57)
[2025-03-10 11:58] VITALS: PULSE 96; RESP 18; O2SAT 96
[2025-03-10] MEDS: IPRATROPIUM BROMIDE 0.5 MG/2.5 ML NEB SOLUTION NEB ONE (11:58)
[2025-03-10 12:09] VITALS: PULSE 85; RESP 18; O2SAT 99
[2025-03-10] MEDS ORDERED: AMOX500C2 PO (12:12)
[2025-03-10] MEDS ORDERED: PERCT PO (12:18)
== END 2025-03-10 12:43 | disposition home or self-care (01) ==
LOC: EMS 10:42
DX: J45.901 Unspecified asthma with (acute) exacerbation (principal); J32.9 Chronic sinusitis, unspecified; F17.210 Nicotine dependence, cigarettes, uncomplicated; Z98.890 Other specified postprocedural states; Z91.0110 Allergy to milk products, unspecified; Z79.899 Other long term (current) drug therapy; Z20.822 Contact with and (suspected) exposure to COVID-19
CPT/HCPCS: 99284; 71045; 87426; 87804; 94640; J7512; J7613